=== PATIENT | female | born 1990 | race American Indian/Alaskan Native ===

== ENCOUNTER 2021-03-09 07:08 | Inpatient (IN) | payer MEDICAID, OTHER ==
[2021-03-09] MEDS: LACTATED RINGERS 1,000 ML IV SCH ×2 (07:30→10:00)
[2021-03-09] MEDS ORDERED: AMPICILLIN/NS 2 GM/100 ML 2 GM/100 ML BAG IV ONE (08:08)
[2021-03-09 08:46] LABS: Hematocrit 34.7 % (30.3-42.9); Hemoglobin 11.9 gm/dl (10.1-14.3); Mean Corpuscular HGB Conc 34 % (30-34); Mean Corpuscular Volume 85 fl (79-97); Platelet Count 277 K/mm3 (140-440); Red Cell Distribution Width 13.7 % (13.2-15.2)
[2021-03-09] MEDS ORDERED: BUTORPHANOL 2 MG/1 ML INJ IV PRN (09:00)
[2021-03-09] MEDS ORDERED: MINERAL OIL 30 ML ORAL LIQD PO PRN (09:00)
[2021-03-09] MEDS ORDERED: OXYTOCIN DRIP 30 UNITS/500 ML BAG IV SCH ×2 (09:00)
[2021-03-09] MEDS ORDERED: AMPICILLIN/NS 2 GM/100 ML 2 GM/100 ML BAG IV SCH (09:00)
[2021-03-09] MEDS ORDERED: OXYTOCIN 10 UNIT/1 ML INJ IM PRN (09:00)
[2021-03-09] MEDS ORDERED: TERBUTALINE 1 MG/1 ML INJ SUB-Q PRN (09:00)
[2021-03-09] MEDS ORDERED: METHYLERGONOVINE MALEATE 0.2 MG/ML VIAL IM PRN (09:00)
[2021-03-09] MEDS ORDERED: miSOPROStol 200 MCG TAB PR PRN (09:00)
[2021-03-09] MEDS ORDERED: LIDOCAINE (2%) 20 MG/1 ML VIAL 20 ML MDV INFILTRATI SCH (09:00)
[2021-03-09] MEDS ORDERED: LOPERAMIDE 2 MG CAP PO PRN (09:00)
[2021-03-09] MEDS ORDERED: ONDANSETRON 4 MG/2 ML INJ IV PRN (09:00)
[2021-03-09] MEDS ORDERED: CARBOPROST TROMETHAMINE 250 MCG/1 ML INJ IM PRN (09:00)
[2021-03-09] MEDS ORDERED: ePHEDrine SULFATE 50 MG/1 ML INJ IV PRN ×2 (09:00→09:30)
[2021-03-09] MEDS ORDERED: fentaNYL 100 MCG/2 ML INJ IV PRN (09:00)
[2021-03-09] MEDS ORDERED: ACETAMINOPHEN 325 MG TAB PO PRN (09:00)
--- NOTE | 2021-03-09 09:29 | Anesthesia Consultation ---
Anesthesia Consult and Med Hx Date of service: 03/09/21 - Airway Anesthetic Teeth Evaluation: Good ROM Head & Neck: Adequate Mental/Hyoid Distance: Adequate Mallampati Class: Class II Intubation Access Assessment: Probably Good - Pulmonary Exam CTA: Yes - Cardiac Exam Cardiac Exam: RRR - Pre-Operative Health Status ASA Pre-Surgery Classification: ASA2 Proposed Anesthetic Plan: Epidural - Pulmonary Hx Smoking: No Hx Asthma: No Hx Respiratory Symptoms: No SOB: No COPD: No Home Oxygen Therapy: No Hx Pneumonia: No Hx Sleep Apnea: No - Cardiovascular System Hx Hypertension: No Hx Coronary Artery Disease: No Hx Heart Attack/AMI: No Hx Angina: No Hx Percutaneous Transluminal Coronary Angioplasty (PTCA): No Hx Cardia Arrhythmia: No Hx Pacemaker: No Hx Internal Defibrillator: No Hx Valvular Heart Disease: No Hx Heart Murmur: No Hx Peripheral Vascular Disease: No - Central Nervous System Hx Neuromuscular Disorder: No Hx Seizures: No CVA: No Hx Back Pain: Yes Hx Psychiatric Problems: No - Gastrointestinal Hx Ulcer: No Hx Gastroesophageal Reflux Disease: Yes - Endocrine Hx Renal Disease: No Hx End Stage Renal Disease: No Hx Cirrhosis: No Hx Liver Disease: No Hx Insulin Dependent Diabetes: No Hx Non-Insulin Dependent Diabetes: No Hx Thyroid Disease: No Hx Hypothyroidism: No Hx Hyperthyroidism: No - Hematic Hx Anemia: No Hx Sickle Cell Disease: No (sickle cell trait) - Other Systems Hx Alcohol Use: No Hx Substance Use: No Hx Cancer: No Hx Obesity: No
[2021-03-09] MEDS ORDERED: NALOXONE 2 MG/2 ML INJ IV PRN (09:30)
[2021-03-09] MEDS ORDERED: fentaNYL-BUPIV 2 MCG/ML-0.125% 200 MCG/100 ML BAG EPIDURAL SCH (10:00)
--- NOTE | 2021-03-09 10:03 | History and Physical Report ---
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 Past History Past Medical History: no pertinent history Past Surgical History: no surgical history Family/Genetic History: none Social history: no significant social history - Obstetrical History Expected Date of Delivery: 03/10/21 Actual Gestation: 39 Week(s) 6 Day(s) : 1 Medications and Allergies Allergies Allergy/AdvReac Type Severity Reaction Status Date / Time No Known Allergies Allergy Verified 03/09/21 07:38 Home Medications Medication Instructions Recorded Confirmed Last Taken Type DOXYCYCLINE Hyclate [Vibramycin 100 mg PO BID #14 capsule 07/22/14 Unknown Rx CAP] traMADoL [Ultram 50 MG tab] 50 mg PO Q6HR PRN #20 tablet 07/22/14 Unknown Rx Active Meds: Active Medications Acetaminophen (Acetaminophen 325 Mg Tab) 650 mg PO Q4H PRN PRN Reason: Pain, Mild (1-3) Butorphanol Tartrate (Butorphanol 2 Mg/1 Ml Inj) 2 mg IV Q2H PRN PRN Reason: Pain , Severe (7-10) Carboprost Tromethamine (Carboprost Tromethamine 250 Mcg/1 Ml Inj) 250 mcg IM ONCE PRN PRN Reason: Uterine Bleeding Ephedrine Sulfate (Ephedrine Sulfate 50 Mg/1 Ml Inj) 10 mg IV Q2M PRN PRN Reason: Hypotension Fentanyl (Fentanyl 100 Mcg/2 Ml Inj) 100 mcg IV Q2H PRN PRN Reason: Pain,Severe (7-10) LABOR PAIN Oxytocin/Sodium Chloride (Pitocin/Ns 30 Unit/500ml) 30 units in 500 mls @ 2 mls/hr IV TITR [facility]; Protocol Lactated Ringer's (Lactated Ringers) 1,000 mls @ 125 mls/hr IV DIRECT [facility] Oxytocin/Sodium Chloride (Pitocin/Ns 30 Unit/500ml) 30 units in 500 mls @ 40 mls/hr IV TITR [facility]; Protocol Ampicillin Sodium (Ampicillin/Ns 1 Gm/50 Ml) 1 gm in 50 mls @ 100 mls/hr IV Q4H [facility]; Protocol Ampicillin Sodium (Ampicillin/Ns 2 Gm/100 Ml) 2 gm in 100 mls @ 100 mls/hr IV ONCE@0900 [facility]; Protocol Stop: 03/09/21 13:00 Fentanyl/Bupivacaine/Sodium Chlor (Fentanyl-Bupiv 2 Mcg/Ml-0.125%) 200 mcg in 100 mls @ 12 mls/hr EPIDURAL TITR [facility]; Protocol Lidocaine (Lidocaine (2%) 20 Mg/1 Ml Vial 20 Ml Mdv) 20 ml INFILTRATI ONCE@0900 [facility] Stop: 03/10/21 08:59 Loperamide HCl (Loperamide 2 Mg Cap) 2 mg PO ONCE PRN PRN Reason: give with Hemabate Methylergonovine Maleate (Methylergonovine Maleate 0.2 Mg/Ml Vial) 0.2 mg IM ONCE PRN PRN Reason: Uterine Bleeding Mineral Oil (Mineral Oil 30 Ml Oral Liqd) 30 ml PO QHS PRN PRN Reason: Constipation Misoprostol (Misoprostol 200 Mcg Tab) 800 mcg SD ONCE PRN PRN Reason: Uterine Bleeding Naloxone HCl (Naloxone 2 Mg/2 Ml Inj) 0.2 mg IV Q5M PRN PRN Reason: Respiratory sedation Ondansetron HCl (Ondansetron 4 Mg/2 Ml Inj) 4 mg IV Q8H PRN PRN Reason: Nausea And Vomiting Oxytocin (Oxytocin 10 Unit/1 Ml Inj) 10 unit IM ONCE PRN PRN Reason: Uterine Bleeding Terbutaline Sulfate (Terbutaline 1 Mg/1 Ml Inj) 0.25 mg SUB-Q ONCE PRN PRN Reason: Hyperstimulation/Hypertonicity Review of Systems All systems: negative - Vital Signs Vital signs: Vital Signs Pulse Ox 99 03/09/21 07:28 Temp Pulse Resp BP Pulse Ox 100 H 107/56 98 03/09/21 09:53 03/09/21 09:46 03/09/21 09:53 - Physical Exam Breasts: Positive: normal Cardiovascular: Regular rate Lungs: Positive: Clear to auscultation, Normal air movement Abdomen: Positive: normal appearance, soft, normal bowel sounds Genitourinary (Female): Positive: normal external genitalia, normal perenium Vagina: Positive: normal moisture Uterus: Positive: enlarged Anus/Rectum: Positive: normal perianal skin - Obstetrical FHR: category 1 Uterine Contraction Monitor Mode: External Cervical Dilatation: 6.5 (Vtx; Large amount of clear fluid upon AROM at 0945) Cervical Effacement Percentage: 90 station: -2 Uterine Contraction Pattern: Irregular Uterine Tone Measurement Phase: Resting Uterine Contraction Intensity: Moderate Results Result Diagrams: 03/09/21 08:00 Abnormal lab results 03/09/21 Range/Units 08:00 WBC 17.8 H (4.5-11.0) K/mm3 All other labs normal. Assessment and Plan A: IUP @ 39 6/7 Weeks Category I Tracing Active Labor GBS Negative P: Admit to L&D Per Routine Order AROM Pitocin Augmentation
--- NOTE | 2021-03-09 11:13 | Progress Note ---
Labor Epidural - Labor Epidural Start Time: 09:22 Stop Time: 09:33 Performed by:: DERW GONZALES Procedure: Patient is requesting a laboring epidural for laboring pain. Patient IDed, H&P reviewed, all questions and concerns were answered, and consent was signed. Timeout was performed at bedside. Patient in sitting position. Sterile prep and drape was performed. [3] ml of 1% lidocaine skin wheal at L[3]- L [4]. 18- gauge Tuohy epidural needle was advanced to loss of resistance with saline technique 7cm x 1 attempt. Negative CSF negative blood. Epidural catheter advanced to [11] centimeters. [NEGATIVE] Aspiration [NEGATIVE] test dose. Sterile dressing applied. Patient tolerated procedure.
[2021-03-09] MEDS ORDERED: WITCH HAZEL/ GLYCERIN PAD TP PRN (12:41)
[2021-03-09] MEDS ORDERED: HYDROCORTISONE 25 MG RECTAL SUPP PR PRN (12:41)
[2021-03-09] MEDS ORDERED: HYDROcodone/ACETAMINOPHEN 5-325 MG TAB PO PRN (12:41)
[2021-03-09] MEDS ORDERED: diphenhydrAMINE 25 MG CAP PO PRN (12:41)
[2021-03-09] MEDS ORDERED: LANOLIN/ZINC/DIMETHICONE (LANSINOH) 7 GM TP PRN (12:41)
--- NOTE | 2021-03-09 12:49 | Procedure Note ---
OB Delivery Note - Delivery Date of Delivery: 03/09/21 (1221) Surgeon: JARROD THOMSON Estimated blood loss: 200cc - Vaginal Delivery presentation: vertex Delivery position: OA Intrapartum events: mult.variable deceleratio Delivery induction: none Delivery augmentation: rupture of membranes, pitocin Delivery monitor: external FHT, external uterine Route of delivery: Delivery placenta: spontaneous Delivery cord: 3 umbilical vessels Episiotomy: none Delivery laceration: 1st degree Delivery repair: vicryl Anesthesia: epidural Delivery comments: of a live 5'15 male infant over a 1st degree vaginal laceration under epidural anesthesia with Apgars of 8 and 9 at 1221 on 03/09/2021. direct ly to maternal abd/chest, skin to skin contact. Spontaneous delivery of the placenta complete and intact with Isbell side presenting at 1224. Fundus is firm and midline located 4 below the U. Lochia is scant. Delayed cord clamping and cutting; Cord cut by the Father of the Baby. Vaginal laceration repaired with 2-[address]-1. Placenta discarded. - Infant A at 1 minute: 8 Infant Gender: Male (5'15)
[2021-03-09] MEDS ORDERED: AMPICILLIN/NS 1 GM/50 ML 1 GM/50 ML BAG IV SCH (13:00)
[2021-03-09] MEDS: PRENATAL VIT27-FE FUMARATE-FOLIC ACID VIT TAB PO SCH (13:51)
[2021-03-09] MEDS: IBUPROFEN 600 MG TAB PO SCH (13:51)
--- NOTE | 2021-03-09 16:03 | Post Anesthesia Evaluation ---
- Post Anesthesia Evaluation Patient Participated: Yes Airway Patent: Yes Stable Respiratory Function: Yes Nausea/Vomiting: No Temp > 96.8F: Yes Pain Manageable: Yes Adequeate Hydration: Yes Anesthesia Complications: No Block Receding Appropriately: Yes Patient on Ventilator: No
[2021-03-10] MEDS: IBUPROFEN 600 MG TAB PO SCH ×2 (01:00→11:35)
[2021-03-10 01:23] LABS: Hematocrit 33.8 % (30.3-42.9); Hemoglobin 11.2 gm/dl (10.1-14.3)
--- NOTE | 2021-03-10 10:38 | Discharge Summary ---
Providers - Providers Date of Admission: 03/09/21 07:09 Date of discharge: 03/10/21 Attending physician: LIZET JONES JR, MD Primary care physician: LIZET JONES JR, MD Hospitalization Reason for admission: active labor, IUP at term Delivery: Episiotomy: none Laceration: 1st degree Incision: normal, intact Other procedures: none complications: none Discharge diagnosis: IUP at term delivered [place] baby: male Hospital course: Pt was admitted to [facility] in active labor. She had a w/o pp complications. See H&P, delivery summary, and pp notes. Condition at discharge: Stable Disposition: 30 STILL A PATIENT Plan - Provider Discharge Summary Activity: routine, no sex for 6 weeks, no heavy lifting 4 weeks, no strenuous exercise Diet: routine Instructions: routine Additional instructions: [] Smoking cessation referral if applicable(refer to patient education folder for contact #) [] Refer to [facility] Booklet Call your doctor immediately for: * Fever > 100.5 * Heavy vaginal bleeding ( >1 pad per hour) * Severe persistent headache * Shortness of breath * Reddened, hot, painful area to leg or breast * Drainage or odor from incision. * Keep incision clean and dry at all times and follow doctor's instructions regarding bathing/showering - Follow up plan Follow up: LIZET JONES JR, MD [Primary Care Provider] - 6 Weeks
--- NOTE | 2021-03-10 10:48 | Progress Note ---
Assessment and Plan A: S/P P: D/C Home today per pt request Subjective - Subjective Date of service: 03/10/21 Principal diagnosis: s/p Patient reports: appetite normal, voiding normally, pain well controlled, ambulating normally : doing well, bottle feeding Objective - Vital Signs Latest vital signs: Vital Signs Temp Pulse Resp BP BP Pulse Ox Pulse Ox 03/10/21 08:31 97.7 F 90 18 109/65 99 03/10/21 08:10 98 03/10/21 02:00 18 03/10/21 01:00 18 03/10/21 00:46 98.1 F 84 20 122/62 100 03/09/21 21:05 98.3 F 107 H 18 123/60 99 03/09/21 20:00 98 03/09/21 15:00 97.5 F L 98 H 18 140/75 100 99 03/09/21 14:45 90 116/62 100 03/09/21 13:51 18 03/09/21 13:38 86 99 03/09/21 13:33 78 100 03/09/21 13:28 88 99 03/09/21 13:27 79 105/58 03/09/21 13:23 76 100 03/09/21 13:18 85 99 03/09/21 13:13 90 124/68 99 03/09/21 13:08 82 99 03/09/21 13:03 77 100 03/09/21 12:58 79 110/55 100 03/09/21 12:53 88 100 03/09/21 12:48 83 99 03/09/21 12:43 101 H 100 03/09/21 12:38 80 100 03/09/21 12:33 65 100 03/09/21 12:28 74 100 03/09/21 12:27 72 121/56 03/09/21 12:23 86 100 03/09/21 12:21 90 85 03/09/21 12:19 72 126/57 03/09/21 12:18 77 100 03/09/21 12:13 83 100 03/09/21 12:08 91 H 96 03/09/21 12:03 81 100 03/09/21 12:00 98.4 F 18 03/09/21 11:58 71 100 03/09/21 11:53 72 100 03/09/21 11:48 73 119/68 100 03/09/21 11:43 76 100 03/09/21 11:38 79 100 03/09/21 11:33 71 100 03/09/21 11:28 77 100 03/09/21 11:23 75 100 03/09/21 11:18 73 108/66 100 03/09/21 11:13 78 100 03/09/21 11:08 81 99 03/09/21 11:03 79 98 03/09/21 10:58 81 98 03/09/21 10:53 75 99 03/09/21 10:48 80 100/59 98 Intake and Output 03/09/21 03/10/21 03/10/21 22:59 06:59 14:59 Intake Total 680 420 Output Total 600 500 Balance 80 -80 Intake: Oral 440 Intake, Free Water 240 420 Output: Urine 600 500 Void 600 500 Other: Total, Intake Amount 120 Total, Output Amount 600 500 # Voids Void 1 1 - Exam Breasts: Present: normal Abdomen: Present: normal appearance, soft, normal bowel sounds Vulva: both: normal Uterus: Present: normal, firm, fundal height below umbilicus Extremities: Present: normal Incision: Present: normal, intact
[2021-03-10] MEDS: PRENATAL VIT27-FE FUMARATE-FOLIC ACID VIT TAB PO SCH (11:06)
[2021-03-10 18:15] VITALS: BP 108/56
== END 2021-03-10 17:30 | disposition home or self-care (01) | DRG 775 ==
LOC: TRG 07:08 → LD 07:09 → APU 07:10 → LD 07:37 → TRG 08:37 → OB 14:55
PROVIDERS: ADMIT Obstetrics & Gynecology; ATTEND Obstetrics & Gynecology
PROC: 10E0XZZ Delivery of Products of Conception, External Approach (ICD-10-PCS; principal; 2021-03-09)
PROC: 10907ZC Drainage of Amniotic Fluid, Therapeutic from Products of Conception, Via Natural or Artificial Opening (ICD-10-PCS; 2021-03-09)
PROC: 0HQ9XZZ Repair Perineum Skin, External Approach (ICD-10-PCS; 2021-03-09)
PROC: 3E0R3BZ Introduction of Anesthetic Agent into Spinal Canal, Percutaneous Approach (ICD-10-PCS; 2021-03-09)
PROC: 00HU33Z Insertion of Infusion Device into Spinal Canal, Percutaneous Approach (ICD-10-PCS; 2021-03-09)
DX: O76 Abnormality in fetal heart rate and rhythm complicating labor and delivery (principal); Z37.0 Single live birth; Z3A.39 39 weeks gestation of pregnancy; Z20.822 Contact with and (suspected) exposure to COVID-19; O99.62 Diseases of the digestive system complicating childbirth; K21.9 Gastro-esophageal reflux disease without esophagitis; O99.02 Anemia complicating childbirth; D56.3 Thalassemia minor; O70.0 First degree perineal laceration during delivery
CPT/HCPCS: 36415; 85014; 85018; 85027; 86850; 86900; 86901; G0378; J2590; J7120; U0003